=== PATIENT | male | born 1965 | race American Indian/Alaskan Native ===

== ENCOUNTER 2021-06-11 08:32 | Emergency (ER) | payer BC, OTHER ==
--- NOTE | 2021-06-11 09:34 | Emergency Department Report ---
ED Recheck HPI - General Chief Complaint: Medical Clearance Stated Complaint: INSULIN REFILL Time Seen by Provider: 06/11/21 08:58 Source: patient Mode of arrival: Ambulatory Limitations: No Limitations - History of Present Illness Initial Comments: This is a 56-year-old male nontoxic, well nourished in appearance, no acute signs of distress presents to the ED for insulin medication refill. Patient currently denies any symptoms or conditions. Patient the last dose of insulin was today. Patient stated has PCP which is unable to follow-up with at this time due to no availability. Patient otherwise denies any chest pain, shortness of breath, fever, chills, nausea, vomiting, headache or stiff neck. Patient denies any allergies. Patient does have his empty medication boxes for refill. MD Complaint: medication refill request -: This morning Returns Today for: request for prescription Symptoms Since Prior Visit: no new symptoms Associated Symptoms: none. denies: fever, chills, chest pain, shortness of breath, rash, malaise, nasuea, abdominal pain - Related Data Home Medications Medication Instructions Recorded Confirmed Last Taken Insulin Aspart (Nf) [Novolog 100 6 unit SQ QHS 10/11/13 10/11/13 10/10/13 22:00 UNITS/ML] Insulin Glargine,Hum.rec.anlog 20 unit SQ QHS 10/11/13 10/11/13 10/10/13 22:00 [Lantus] Previous Rx's Medication Instructions Recorded Last Taken Type Insulin Aspart (Nf) [Novolog 8 unit SQ TID #1 box 06/11/21 Unknown Rx Flexpen] Insulin Detemir [Levemir VIAL] 30 unit SQ QHS #1 vial 06/11/21 Unknown Rx Allergies Allergy/AdvReac Type Severity Reaction Status Date / Time No Known Allergies Allergy Verified 06/11/21 08:42 ED Review of Systems ROS: Stated complaint: INSULIN REFILL Other details as noted in HPI Comment: All other systems reviewed and negative Constitutional: denies: chills, fever Eyes: denies: eye pain, eye discharge, vision change ENT: denies: ear pain, throat pain Respiratory: denies: cough, shortness of breath, wheezing Cardiovascular: denies: chest pain, palpitations Endocrine: no symptoms reported Gastrointestinal: denies: abdominal pain, nausea, diarrhea Genitourinary: denies: urgency, dysuria Musculoskeletal: denies: back pain, joint swelling, arthralgia Skin: denies: rash, lesions Neurological: denies: headache, weakness, paresthesias Psychiatric: denies: anxiety, depression Hematological/Lymphatic: denies: easy bleeding, easy bruising ED Past Medical Hx - Past Medical History Hx Diabetes: Yes (Type 2 DM) Hx Psychiatric Treatment: No - Surgical History Additional Surgical History: rt foot( removed one extra toe) - Social History Substance Use Type: None - Medications Home Medications: Home Medications Medication Instructions Recorded Confirmed Last Taken Type Insulin Aspart (Nf) [Novolog 100 6 unit SQ QHS 10/11/13 10/11/13 10/10/13 22:00 History UNITS/ML] Insulin Glargine,Hum.rec.anlog 20 unit SQ QHS 10/11/13 10/11/13 10/10/13 22:00 History [Lantus] Insulin Aspart (Nf) [Novolog 8 unit SQ TID #1 box 06/11/21 Unknown Rx Flexpen] Insulin Detemir [Levemir VIAL] 30 unit SQ QHS #1 vial 06/11/21 Unknown Rx ED Physical Exam - General Limitations: No Limitations General appearance: alert, in no apparent distress - Head Head exam: Present: atraumatic, normocephalic - Eye Eye exam: Present: normal appearance - Neck Neck exam: Present: normal inspection, full ROM. Absent: lymphadenopathy - Respiratory Respiratory exam: Absent: respiratory distress - Cardiovascular Cardiovascular Exam: Present: regular rate - GI/Abdominal GI/Abdominal exam: Present: soft. Absent: distended, tenderness - Extremities Exam Extremities exam: Present: full ROM - Back Exam Back exam: Present: full ROM - Neurological Exam Neurological exam: Present: alert, oriented X3, normal gait - Psychiatric Psychiatric exam: Present: normal affect, normal mood - Skin Skin exam: Present: warm, dry, intact, normal color. Absent: rash ED Course Vital Signs 06/11/21 08:38 Temperature 98.4 F Pulse Rate 81 Respiratory 18 Rate Blood Pressure 200/95 [Left] O2 Sat by Pulse 100 Oximetry - Reevaluation(s) Reevaluation #1: 06/11/21 09:33 Patient is speaking in full sentences with no signs of distress noted. ED Recheck MDM - Medical Decision Making 56-year-old male that presents with medication refill. Patient is stable and was examined by me. I will refill patient's medication which he does have in the boxes for dosing. Physical exam otherwise is unremarkable. Patient was instructed to follow-up with a primary care doctor in 3-5 days or if symptoms worsen and continue return to emergency room as soon as possible. At time of discharge, the patient does not seem toxic or ill in appearance. No acute signs of distress noted. Patient agrees to discharge treatment plan of care. No further questions noted by the patient. Critical care attestation.: If time is entered above; I have spent that time in minutes in the direct care of this critically ill patient, excluding procedure time. ED Disposition Clinical Impression: Medication refill Disposition: HOME / SELF CARE / HOMELESS Is pt being admited?: No Does the pt Need Aspirin: No Condition: Stable Additional Instructions: Follow-up with a primary care doctor in 3-5 days or if symptoms worsen and continue return to emergency room as soon as possible. Prescriptions: Insulin Detemir [Levemir VIAL] 30 unit SQ QHS #1 vial Insulin Aspart (Nf) [Novolog Flexpen] 8 unit SQ TID #1 box Referrals: CUCA CUENCA MD [Primary Care Provider] - 3-5 Days CHAYO ROTH MD [Staff Physician] - 3-5 Days Time of Disposition: 09:36
[2021-06-11 09:54] VITALS: BP 198/89
== END 2021-06-11 09:56 | disposition home or self-care (01) ==
LOC: ED 08:32
DX: E11.8 Type 2 diabetes mellitus with unspecified complications (principal); Z76.0 Encounter for issue of repeat prescription
CPT/HCPCS: 99282